=== PATIENT | female | born 1995 | race Caucasian/White ===

== ENCOUNTER 2021-09-23 18:40 | Inpatient (IN) | payer MEDICAID ==
[~2021-09-23] VITALS: Ht 162.6 cm; Wt 105.2 kg
[~2021-09-23 18:40] MED LIST: FAMO20TA5 PO; HYOS0.1216 PO; NITR-65 PO
[2021-09-23 19:45] VITALS: BP 113/68
[2021-09-23] MEDS ORDERED: LACTATED RINGERS 1,000 ML IV SCH (19:45)
[2021-09-23] MEDS ORDERED: MINERAL OIL 30 ML OIL TOP PRN (19:45)
[2021-09-23] MEDS ORDERED: LACTATED RINGERS 1,000 ML IV ONE (20:01)
[2021-09-23] MEDS: CATHETER FLUSH 10 ML SYR IV SCH (20:32)
[2021-09-23 21:01] LABS: BASOPHILS % (AUTO) 0 % (0-10); EOSINOPHILS # (AUTO) 0.1 10^3/uL (0.0-0.3); EOSINOPHILS % (AUTO) 1 % (0-10); HEMATOCRIT 39 % (35-52); LYMPHOCYTES # (AUTO) 1.1 10^3/uL (1.0-4.0); LYMPHOCYTES % (AUTO) 14 % (12-44); MEAN CORPUSCULAR HEMOGLOBIN 28 pg (25-34); MEAN CORPUSCULAR HGB CONC 34 g/dL (32-36); MEAN CORPUSCULAR VOLUME 85 fL (80-99); MONOCYTES # (AUTO) 0.4 10^3/uL (0.0-1.0); MONOCYTES % (AUTO) 5 % (0-12); NEUTROPHILS # (AUTO) 6.4 10^3/uL (1.8-7.8); NEUTROPHILS % (AUTO) 80 % (42-75); PLATELET COUNT 204 10^3/uL (130-400)
[2021-09-23] MEDS: LACTATED RINGERS 1,000 ML IV SCH (21:04)
[2021-09-23 21:10] VITALS: BP 121/67
[2021-09-23] MEDS ORDERED: METF-397 PO ×2 (22:36)
[2021-09-24] VITALS (70 sets, daily range): BP systolic 90–157; BP diastolic 49–89
[2021-09-24] MEDS: LACTATED RINGERS 1,000 ML IV SCH ×4 (05:23→22:06)
--- NOTE | 2021-09-24 07:33 | History & Physical-OB/GYN ---
MADELYN LAWS III MED STUDENT 09/24/21 0733: OB - Chief Complaint & HPI Date/Time Date of Admission: Date of Admission: Sep 23, 2021 at 18:40 Date seen by a Provider: Sep 24, 2021 Time Seen by a Provider: 08:10 Chief Complaint/History OB-Reason for Admission/Chief: Induction of Labor Hx : 3 Hx Para: 2 Hx Last Menstrual Period: 12/29/2020 Expected Date of Delivery: Oct 05, 2021 Gestational Age in Weeks: 38 Gestational Age in Days: 3 Indication for induction: medical complication (Gestational diabetes, LGA w/ most recent EFW of 4130g) Allergies and Home Medications Allergies Coded Allergies: hydrocodone (Verified Allergy, Unknown, Rash, 09/23/21) Patient Home Medication List Home Medication List Reviewed: Yes Metformin HCl (Metformin HCl) 500 Mg Tablet, 500 MG PO DAILY, (Reported) Entered as Reported by: HARLEEN DAY on 09/23/212235 Last Action: New Order Metformin HCl (Metformin HCl) 500 Mg Tablet, 1,500 MG PO HS, (Reported) Entered as Reported by: HARLEEN DAY on 09/23/212235 Last Action: New Order Discontinued Medications Famotidine (Pepcid) 20 Mg Tablet, 1 EACH PO BID Discontinued Reason: No Longer Taking Prescribed by: JAMSHID HEMPHILL on 04/03/141741 Last Action: Discontinued Hyoscyamine Sulfate (Levsin 0.125 Mg Tab) 0.125 Mg Tab, 1-2 EACH PO Q4HR PRN PRN for ABDOMINAL PAIN Discontinued Reason: No Longer Taking Prescribed by: JAMSHID HEMPHILL on 04/03/141741 Last Action: Discontinued Nitrofurantoin/Nitrofuran Mac (Macrobid) 100 Mg Capsule, 1 EACH PO BID Discontinued Reason: No Longer Taking Prescribed by: JAMSHID HEMPHILL on 04/03/141741 Last Action: Discontinued OB - History Hx of Present Care: Yes Obstetrical Complications: Gestational Diabetes Medical Complications: None Information Induced Hypertension: No Maternal Gestational Diabetes: Yes Hemorrhage: No Obstetrical History Hx : 3 Hx Para: 2 Hx # Term Pregnancies: 2 Hx # Pregnancies: 0 Number of Living Children: 2 Hx Termination: No Hx Total # of Abortions (Spona: 0 Hx Multiple Gestation: No Hx Ectopic : No Hx Stillbirth: No Hx Complication: No Hx Induced Hypertens: No Hx Maternal Gestational Diabet: Yes Hx Hemorrhage: No Delivery History Hx Dystocia: No Hx Forceps Assisted Delivery: No Hx Vacuum Extraction Assisted: No Hx Placenta Abnormality: No Hx Distress: No Hx Large For Gestational Age I: No Hx Small for Gestational Age I: No Hx Section: No Hx Vaginal Delivery Post C-Sec: No Hx Blood Disorders: No Adverse Rxn to Tranfusion: No Patient Past Medical History Hx of gestational diabetes requiring insulin in first Social History/Family History Alcohol Use: Denies Use Recreational Drug Use: No Smoking Cessation: Never smoker 2nd Hand Smoke Exposure: No Immunizations Influenza Vaccine Up-to-Date: No; Not Current Tetanus Booster (TDap): Less than 5yrs Rubella: immune RPR/VDRL: Negative GBS Status: Negative HBsAG: Negative OB - Admission Exam Physical Exam Vitals: Vital Signs 09/24/21 09/24/21 04:25 07:05 Temp 36.5 Pulse 102 Resp 20 B/P (MAP) 130/71 (90) O2 Delivery Room Air HEENT: NCAT Heart: Rhythm Normal Lungs: Clear Abdomen: Gravid Extremities: Edema (trace pedal edema) Cervical Dilatation: 4cm Effacement: 25% Station: -2 Membranes: Intact (prior to cervical check, broke water at 0812) Amniotic Fluid: Clear Heart Rate: 140's Accelerations: Accelerations Present Decelerations: No Decelerations Short Term Variability: Present Fci Variability: Average (6-25) Contractions on Admission: 6-10 Minutes Apart Date/Time Contractions Began;: cytotec given on admission Intensity: Moderate Ulrich Scoring Tool (Modified) Dilation (cm): 1-2cm (1) Effacement (%): 0-30% (0) Descent/Station: -2 (1) Cervix Consistency: Soft (2) Cervix Position: Posterior (0) Add 1 point for: Each previous vaginal delivery (1) (x2) Ulrich Score: 6 Labs Laboratory Tests Test 09/23/21 19:52 09/23/21 20:20 09/24/21 00:03 09/24/21 04:29 Range/Units Glucometer 85 82 94 70-110 MG/DL White Blood Count 8.0 4.3-11.0 10^3/uL Red Blood Count 4.58 3.80-5.11 10^6/uL Hemoglobin 13.0 11.5-16.0 g/dL Hematocrit 39 35-52 % Mean Corpuscular Volume 85 80-99 fL Mean Corpuscular Hemoglobin 28 25-34 pg Mean Corpuscular Hemoglobin Concent 34 32-36 g/dL Red Cell Distribution Width 13.4 10.0-14.5 % Platelet Count 204 130-400 10^3/uL Mean Platelet Volume 12.0 9.0-12.2 fL Immature Granulocyte % (Auto) 1 % Neutrophils (%) (Auto) 80 H 42-75 % Lymphocytes (%) (Auto) 14 12-44 % Monocytes (%) (Auto) 5 0-12 % Eosinophils (%) (Auto) 1 0-10 % Basophils (%) (Auto) 0 0-10 % Neutrophils # (Auto) 6.4 1.8-7.8 10^3/uL Lymphocytes # (Auto) 1.1 1.0-4.0 10^3/uL Monocytes # (Auto) 0.4 0.0-1.0 10^3/uL Eosinophils # (Auto) 0.1 0.0-0.3 10^3/uL Basophils # (Auto) 0.0 0.0-0.1 10^3/uL Immature Granulocyte # (Auto) 0.0 0.0-0.1 10^3/uL OB - Assessment/Plan/Diagnosis Assessment Assessment: induction of labor Admission Dx Induction of labor gestational diabetes LGA infant Plan Plan: Induction ALPHONSE GONZALEZ MD 09/24/21 0827: Allergies and Home Medications Allergies Coded Allergies: hydrocodone (Verified Allergy, Unknown, Rash, 09/23/21) Patient Home Medication List Metformin HCl (Metformin HCl) 500 Mg Tablet, 500 MG PO DAILY, (Reported) Entered as Reported by: HARLEEN DAY on 09/23/212235 Last Action: New Order Metformin HCl (Metformin HCl) 500 Mg Tablet, 1,500 MG PO HS, (Reported) Entered as Reported by: HARLEEN DAY on 09/23/212235 Last Action: New Order Discontinued Medications Famotidine (Pepcid) 20 Mg Tablet, 1 EACH PO BID Discontinued Reason: No Longer Taking Prescribed by: JAMSHID HEMPHILL on 04/03/14 1741 Last Action: Discontinued Hyoscyamine Sulfate (Levsin 0.125 Mg Tab) 0.125 Mg Tab, 1-2 EACH PO Q4HR PRN PRN for ABDOMINAL PAIN Discontinued Reason: No Longer Taking Prescribed by: JAMSHID CARLINO on 04/03/141741 Last Action: Discontinued Nitrofurantoin/Nitrofuran Mac (Macrobid) 100 Mg Capsule, 1 EACH PO BID Discontinued Reason: No Longer Taking Prescribed by: JAMSHID CARLINO on 04/03/141741 Last Action: Discontinued OB - Admission Exam Physical Exam HEENT: NCAT Abdomen: Non tender Cervical Dilatation: 3cm Effacement: Other (20%) Station: -2 Membranes: Intact (AROM at time of exam) Amniotic Fluid: Clear Heart Rate: 140's Accelerations: Accelerations Present Decelerations: No Decelerations Short Term Variability: Present Fci Variability: Average (6-25) Contractions on Admission: >10 Minutes Apart OB - Assessment/Plan/Diagnosis Assessment Admission Dx Term intrauterine at 38 weeks and 3 days gestation Third trimester Gestational diabetes A2 on metformin Suspected macrosomia GBS neg Admission Status: Inpatient Order (span 2 midnights) Reason for Inpatient Admission: Labor, delivery and course Plan Problems: (1) Gestational diabetes Assessment & Plan: 38w3d, induction at this time due to suboptimal fasting glucose over the last week (around 100 daily) along with impending macrosomia with EFW 4130 on 09/20. Has had weekly reassuring BPPs. -Cytotec vaginal given x2 overnight with improvement from 2 to 3+ cm and cervical softening and moved to anterior position. AROM done at time of exam this morning with clear fluid, will start pitocin. -Glucose check q4, have been within normal limits Qualifiers: Qualified Codes: O24.415 - Gestational diabetes mellitus in , controlled by oral hypoglycemic drugs Supervisory-Addendum Brief Verification & Attestation Participated in pt care: history, MDM, physical Personally performed: exam, history, MDM Care discussed with: Medical Student Procedures: n/a I personally saw and examined patient and repeated the history and exam (see my physical exam for my findings, I did not repeat the exact exam documented by the medical student.) I directed the plan of care as documented. MADELYN LAWS III MED STUDENT Sep 24, 2021 07:33 ALPHONSE GONZALEZ MD Sep 24, 2021 08:27
[2021-09-24] MEDS ORDERED: OXYTOCIN PRE-MIX DRIP 500 ML IV ONE (08:23)
[2021-09-24] MEDS ORDERED: OXYTOCIN PRE-MIX DRIP 500 ML IV SCH (08:30)
[2021-09-24] MEDS ORDERED: fentaNYL 2 mcg/ml BUPIVA 0.125 100 ML ONE (08:49)
[2021-09-24] MEDS ORDERED: fentaNYL INJ 100 MCG/2 ML AMP ONE ×2 (09:10→17:41)
[2021-09-24] MEDS ORDERED: BUPIVACAINE 0.25% 10 ML (SENSORCAINE) VIAL ONE (09:10)
[2021-09-24] MEDS ORDERED: diphenhydrAMINE 50 MG/ML INJ (BENADRYL) IV PRN (09:15)
[2021-09-24] MEDS ORDERED: CATHETER FLUSH 10 ML SYR IV PRN (09:15)
[2021-09-24] MEDS ORDERED: NALOXONE 0.4 MG/ML 1 ML (NARCAN) VIAL IV PRN ×2 (09:15→19:15)
[2021-09-24] MEDS ORDERED: LACTATED RINGERS 1,000 ML IV ONE (09:15)
[2021-09-24] MEDS ORDERED: ONDANSETRON 4 MG/2 ML (SDV) Z0FRAN IV PRN (09:15)
[2021-09-24] MEDS: fentaNYL 2 mcg/ml BUPIVA 0.125 100 ML IV SCH ×2 (09:35→21:20)
[2021-09-24] MEDS ORDERED: LACTATED RINGERS 1,000 ML IV SCH (16:45)
--- NOTE | 2021-09-24 16:55 | Labor Progress Note ---
Labor Progress Note Labor Progress Note Date Seen by Provider: Sep 24, 2021 Time Seen by Provider: 16:46 Subjective: Pt denies complaints. First saw her at 1530, discussed category II tracing with recurrent deep variable declerations and recommended scalp electrode plac ement and amnioinfusion, she was hesitant about infusion, so decided to proceed with FSE which was placed at 1549 and trying peanut ball again first. Decelerations did not improve with position change, and she decided she was ready to try amnioinfusion at about 1630. Objective: Cervical exam: /-1, cervix stretchy and head not firmly applied Consistency: soft Position: anterior Presentation: vertex, caput noted posteriorly heart tones: 150 beats per minute, minimal variability for a few minutes prior to IUPC placement, moderate variability after variable deceleration. No accelerations. Tocometer: 2 ctx/10 minutes Assessment/Plan: Lynette Griggs is a (25 /Para 3 / 2,Gestational Age (wks)38 here for induction of labor for gestational diabetes with suspected macrosomia. FSE placed, IUPC inserted and amnioinfusion ordered. Discussed with patient slow progress and no descent and decelerations. If amnioinfusion does not resolve heart rate decelerations quickly, may need to proceed to . Anesthesia: Epidural Vitals - Labs Vital Signs - I&O Vital Signs Date Time Temp Pulse Resp B/P (MAP) Pulse Ox O2 Delivery O2 Flow Rate FiO2 09/24/21 15:50 99 20 135/79 (97) Room Air 09/24/21 15:35 90 20 118/69 (85) Room Air 09/24/21 15:20 102 20 114/60 (78) Room Air 09/24/21 15:05 111 20 115/58 (77) Room Air 09/24/21 14:50 36.4 99 20 108/64 (79) Room Air 09/24/21 14:35 94 20 111/57 (75) Room Air 09/24/21 14:20 101 20 113/62 (79) Room Air 09/24/21 14:05 98 20 110/57 (74) Room Air 09/24/21 13:50 36.3 09/24/21 13:35 117 20 111/61 (78) Room Air 09/24/21 13:20 97 20 129/81 (97) Room Air 09/24/21 13:05 37.0 108 20 127/75 (92) Room Air 09/24/21 12:50 99 20 112/53 (72) Room Air 09/24/21 12:35 100 20 120/57 (78) Room Air 09/24/21 12:20 86 20 101/52 (68) Room Air 09/24/21 12:05 111 20 129/75 (93) Room Air 09/24/21 11:50 106 20 125/71 (89) Room Air 09/24/21 11:35 92 20 127/71 (89) 95 Room Air 09/24/21 11:20 113 20 128/73 (91) 95 Room Air 09/24/21 11:05 95 20 118/68 (85) 96 Room Air 09/24/21 10:50 112 20 127/65 (85) 97 Room Air 09/24/21 10:35 36.3 123 20 131/69 (89) 99 Room Air 09/24/21 10:20 126 20 130/70 (90) 100 Room Air 09/24/21 10:15 106 20 133/70 (91) 98 Room Air 09/24/21 10:10 104 20 130/74 (92) 99 Room Air 09/24/21 10:05 111 20 128/72 (90) 99 Room Air 09/24/21 09:57 106 20 136/63 (87) 100 Room Air 09/24/21 09:54 113 20 134/59 (84) 97 Room Air 09/24/21 09:51 116 20 129/66 (87) 98 Room Air 09/24/21 09:48 106 20 131/70 (90) 98 Room Air 09/24/21 09:45 98 20 135/71 (92) 99 Room Air 09/24/21 09:42 63 20 127/72 (90) Room Air 09/24/21 09:39 82 20 96/55 (69) Room Air 09/24/21 09:36 90 20 122/72 (89) 100 Room Air 09/24/21 09:33 120 20 128/85 (99) Room Air 09/24/21 09:30 115 20 129/75 (93) 98 Room Air 09/24/21 09:27 114 20 139/65 (89) 98 Room Air 09/24/21 09:24 112 20 154/69 (97) 98 Room Air 09/24/21 09:21 109 20 142/73 (96) 98 Room Air 09/24/21 09:18 120 20 157/73 (101) 100 Room Air 09/24/21 09:15 111 20 140/89 (106) 100 Room Air 09/24/21 09:05 103 20 133/87 (102) Room Air 09/24/21 08:35 105 20 133/62 (85) Room Air 09/24/21 08:10 95 20 139/81 (100) Room Air 09/24/21 07:45 36.5 09/24/21 07:05 102 20 130/71 (90) Room Air 09/24/21 06:35 94 20 118/65 (82) Room Air 09/24/21 06:05 111 20 119/76 (90) Room Air 09/24/21 05:35 115 20 123/70 (87) Room Air 09/24/21 05:05 99 20 126/77 (93) Room Air 09/24/21 04:35 97 20 126/67 (86) Room Air 09/24/21 04:25 36.5 09/24/21 04:05 117 20 118/70 (86) Room Air 09/24/21 03:34 93 20 132/73 (92) Room Air 09/24/21 03:05 100 20 116/66 (83) Room Air 09/24/21 02:35 93 20 128/73 (91) Room Air 09/24/21 02:05 98 20 126/78 (94) Room Air 09/24/21 01:35 99 20 90/53 (65) Room Air 09/24/21 01:05 95 20 99/49 (66) Room Air 09/24/21 00:35 96 20 107/58 (74) Room Air 09/24/21 00:05 36.9 104 20 128/76 (93) Room Air 09/23/21 21:10 100 20 121/67 (85) Room Air 09/23/21 19:45 36.7 101 20 99 Room Air 09/23/21 19:45 36.7 101 20 113/68 (83) 99 Room Air Labs Laboratory Tests 09/23/21 19:52: Glucometer 85 09/23/21 20:20: White Blood Count 8.0, Red Blood Count 4.58, Hemoglobin 13.0, Hematocrit 39, Mean Corpuscular Volume 85, Mean Corpuscular Hemoglobin 28, Mean Corpuscular Hemoglobin Concent 34, Red Cell Distribution Width 13.4, Platelet Count 204, Mean Platelet Volume 12.0, Immature Granulocyte % (Auto) 1, Neutrophils (%) (Auto) 80H, Lymphocytes (%) (Auto) 14, Monocytes (%) (Auto) 5, Eosinophils (%) (Auto) 1, Basophils (%) (Auto) 0, Neutrophils # (Auto) 6.4, Lymphocytes # (Auto) 1.1, Monocytes # (Auto) 0.4, Eosinophils # (Auto) 0.1, Basophils # (Auto) 0.0, Immature Granulocyte # (Auto) 0.0 09/24/21 00:03: Glucometer 82 09/24/21 04:29: Glucometer 94 09/24/21 07:44: Glucometer 87 09/24/21 12:06: Glucometer 87 09/24/21 16:10: Glucometer 81 ALPHONSE GONZALEZ MD Sep 24, 2021 16:55
[2021-09-24] MEDS ORDERED: FAMOTIDINE 20MG/2ML IV (PEPCID) ONE (17:23)
[2021-09-24] MEDS ORDERED: CITRIC ACID/SOB CIT (BICITRA) 30 ML UDC ONE (17:23)
[2021-09-24] MEDS ORDERED: METOCLOPRAMIDE INJ 10 MG/2 ML (REGLAN) ONE (17:23)
[2021-09-24] MEDS ORDERED: AMPICILLIN 2,000 MG/14.8 ML (IV USE) ONE (17:24)
[2021-09-24] MEDS ORDERED: NS (IVPB) 50 ML ONE (17:24)
[2021-09-24] MEDS ORDERED: WATER (STERILE) FOR INJECTION 10 ML ONE (17:24)
[2021-09-24] MEDS ORDERED: AZITHROMYCIN INJECTION 500 MG/5 ML VIAL ONE (17:24)
[2021-09-24] MEDS ORDERED: TERBUTALINE INJ 1 MG/ML (BRETHINE) AMP ONE (17:29)
[2021-09-24] MEDS ORDERED: MIDAZOLAM 2 MG/2 ML (VERSED) VIAL ONE (17:41)
[2021-09-24] MEDS ORDERED: LACTATED RINGERS 1,000 ML IV PRN (17:45)
[2021-09-24] MEDS ORDERED: CITRIC ACID/SOB CIT (BICITRA) 30 ML UDC PO ONE (17:45)
[2021-09-24] MEDS ORDERED: AZITHROMYCIN INJECTION 500 MG in NS (IVPB) 250 ML IV ONE (17:45)
[2021-09-24] MEDS ORDERED: AMPICILLIN FOR IV USE 2,000 MG in WATER (STERILE) FOR INJECTION 14.8 ML IV ONE (17:45)
[2021-09-24] MEDS ORDERED: FAMOTIDINE 20MG/2ML IV (PEPCID) IV ONE (17:45)
[2021-09-24] MEDS ORDERED: METOCLOPRAMIDE INJ 10 MG/2 ML (REGLAN) IV ONE (17:45)
[2021-09-24] MEDS ORDERED: METHYLERGONOVINE 0.2 MG/ML (METHERGINE) AMP ONE ×2 (18:31→18:34)
[2021-09-24] MEDS ORDERED: LIDOCAINE PF 2% 5 ML (XYLOCAINE) VIAL ONE (18:55)
[2021-09-24] MEDS ORDERED: ONDANSETRON 4 MG/2 ML (SDV) Z0FRAN ONE (18:55)
[2021-09-24] MEDS ORDERED: ONDANSETRON 4 MG/2 ML (SDV) Z0FRAN IVP PRN (19:15)
[2021-09-24] MEDS ORDERED: TETANUS,DIPTH,PERTUSS P/F (BOOSTRIX) 0.5 ML VIAL IM SCH (19:15)
[2021-09-24] MEDS ORDERED: morphine INJ 4 MG/ML 1 ML (VIAL/SYRINGE) IV PRN (19:15)
[2021-09-24] MEDS ORDERED: MEASLES,MUMPS,RUBELLA 1 EA INJ SC SCH (19:15)
--- NOTE | 2021-09-24 19:28 | Cesarean Section Operative ---
Procedure Procedure Note Pre-operative Diagnosis: Lynette Griggs is a 25yo /Para 3 / 2, Gestational Age (wks)38 with gestational diabetes, type 2A with non-reassuring status Post-operative Diagnosis: s/p Procedure: primary low transverse section Physician: NATHANIEL CALLES Stripper Cutter Machine: None Estimated blood loss: 400 mL Disposition: stable Findings: Viable male , Apgars 8, 9, weight 7#14, intact placenta, 3vc, normal appearing uterus, tubes, and ovaries. Indications:Lynette Griggs is a 25yo /Para 3 / 2,Gestational Age (wks) 38 who presented for IOL for GDMA2. She progressed to 8cm but experienced persistent deep variables despite resuscitation and discontinuation of pi tocin. The decision was made to proceed with primary low transverse section due to non-reassuring status. Procedure Details: The patient was seen in pre-op and the procedure was discussed with the patient in full, including the risks, benefits, and alternatives. All questions were answered. The patient was taken to the operating room and a time out was performed, verifying patient and procedure. After epidural anesthesia was placed by our anesthesia colleagues, the patient was placed in the dorsal supine with leftward tilt for uterine displacement. Her abdomen was then prepped and draped in the typical sterile fashion. A Pfannenstiel skin incision was made using a scalpel and carried down through the underlying fascia. The fascia was incised in the midline and tented up using Shaunna clamps. On both the inferior and superior fascia side the rectus muscle was dissected off bluntly and sharply using Simpson scissors. The peritoneum was identified and entered bluntly in the midline. This was then stretched laterally using manual strength. After entering the abdominal cavity and confirming lack of intraperitoneal adhesions, a large Dillon retractor was placed and the lower uterine segment was visualized. A scalpel was utilized to make a low transverse uterine incision. Amniotomy was performed with an Allis clamp with return of clear fluid. The infant's head was grasped and brought to the level of the incision. Fundal pressure was applied and was delivered without difficulty. Mouth and nares were suctioned with bulb suction. After the umbilical cord was clamped and cut, the was handed off to the pediatric staff. A sample of cord blood was then obtained. The placenta was delivered intact via uterine massage. The uterus was exteriorized and cleared of all clots and debris. The uterine incision was closed using 0 Chromic in a running locked fashion. A second imbricated layer was placed using 0 Chromic in a running fashion as well. The uterus was flexed forward and the posterior rectouterine space was inspected and cleared of all clots and debris. Again the hysterotomy site was examined and hemostasis was observed. The bilateral tubes and ovaries appeared normal. The uterus was placed back into the abdominal cavity and abdominal gutters were cleared of all clots and debris. A final check of the uterine incision showed it to be hemostatic. The rectus muscles were re-approximated using 3-0 Chromic in a running fashion. The fascia was closed with 0 Vicryl in a running fashion. The subcutaneous space was hemostatic, and irrigated. The subcutaneous space was closed with 2-0 Chromic suture in several single interrupted stitches. The skin was then closed using 4-0 Monocryl in a running subcuticular fashion. The skin edges were reapproximated together and were hemostatic. Skin glue was used on the dressing. After the skin glue was found to be dry, a pressure dressing was applied. All sponge, lap and needle counts were correct at the end of the procedure per nursing. 1000mcg of cytotec was placed rectally after uterine sweep was completed. This concluded the case. Vitals - Labs Vital Signs - I&O Vital Signs Date Time Temp Pulse Resp B/P (MAP) Pulse Ox O2 Delivery O2 Flow Rate FiO2 09/24/21 17:50 37.8 145 18 127/69 (88) 100 Room Air 09/24/21 17:35 130 18 131/65 (87) 100 Room Air 09/24/21 17:05 104 18 118/59 (78) Room Air 09/24/21 16:50 103 18 131/62 (85) Room Air 09/24/21 16:35 107 18 134/70 (91) Room Air 09/24/21 16:20 115 18 142/75 (97) Room Air 09/24/21 16:10 36.9 09/24/21 15:50 99 20 135/79 (97) Room Air 09/24/21 15:35 90 20 118/69 (85) Room Air 09/24/21 15:20 102 20 114/60 (78) Room Air 09/24/21 15:05 111 20 115/58 (77) Room Air 09/24/21 14:50 36.4 99 20 108/64 (79) Room Air 09/24/21 14:35 94 20 111/57 (75) Room Air 09/24/21 14:20 101 20 113/62 (79) Room Air 09/24/21 14:05 98 20 110/57 (74) Room Air 09/24/21 13:50 36.3 09/24/21 13:35 117 20 111/61 (78) Room Air 09/24/21 13:20 97 20 129/81 (97) Room Air 09/24/21 13:05 37.0 108 20 127/75 (92) Room Air 09/24/21 12:50 99 20 112/53 (72) Room Air 09/24/21 12:35 100 20 120/57 (78) Room Air 09/24/21 12:20 86 20 101/52 (68) Room Air 09/24/21 12:05 111 20 129/75 (93) Room Air 09/24/21 11:50 106 20 125/71 (89) Room Air 09/24/21 11:35 92 20 127/71 (89) 95 Room Air 09/24/21 11:20 113 20 128/73 (91) 95 Room Air 09/24/21 11:05 95 20 118/68 (85) 96 Room Air 09/24/21 10:50 112 20 127/65 (85) 97 Room Air 09/24/21 10:35 36.3 123 20 131/69 (89) 99 Room Air 09/24/21 10:20 126 20 130/70 (90) 100 Room Air 09/24/21 10:15 106 20 133/70 (91) 98 Room Air 09/24/21 10:10 104 20 130/74 (92) 99 Room Air 09/24/21 10:05 111 20 128/72 (90) 99 Room Air 09/24/21 09:57 106 20 136/63 (87) 100 Room Air 09/24/21 09:54 113 20 134/59 (84) 97 Room Air 09/24/21 09:51 116 20 129/66 (87) 98 Room Air 09/24/21 09:48 106 20 131/70 (90) 98 Room Air 09/24/21 09:45 98 20 135/71 (92) 99 Room Air 09/24/21 09:42 63 20 127/72 (90) Room Air 09/24/21 09:39 82 20 96/55 (69) Room Air 09/24/21 09:36 90 20 122/72 (89) 100 Room Air 09/24/21 09:33 120 20 128/85 (99) Room Air 09/24/21 09:30 115 20 129/75 (93) 98 Room Air 09/24/21 09:27 114 20 139/65 (89) 98 Room Air 09/24/21 09:24 112 20 154/69 (97) 98 Room Air 09/24/21 09:21 109 20 142/73 (96) 98 Room Air 09/24/21 09:18 120 20 157/73 (101) 100 Room Air 09/24/21 09:15 111 20 140/89 (106) 100 Room Air 09/24/21 09:05 103 20 133/87 (102) Room Air 09/24/21 08:35 105 20 133/62 (85) Room Air 09/24/21 08:10 95 20 139/81 (100) Room Air 09/24/21 07:45 36.5 09/24/21 07:05 102 20 130/71 (90) Room Air 09/24/21 06:35 94 20 118/65 (82) Room Air 09/24/21 06:05 111 20 119/76 (90) Room Air 09/24/21 05:35 115 20 123/70 (87) Room Air 09/24/21 05:05 99 20 126/77 (93) Room Air 09/24/21 04:35 97 20 126/67 (86) Room Air 09/24/21 04:25 36.5 09/24/21 04:05 117 20 118/70 (86) Room Air 09/24/21 03:34 93 20 132/73 (92) Room Air 09/24/21 03:05 100 20 116/66 (83) Room Air 09/24/21 02:35 93 20 128/73 (91) Room Air 09/24/21 02:05 98 20 126/78 (94) Room Air 09/24/21 01:35 99 20 90/53 (65) Room Air 09/24/21 01:05 95 20 99/49 (66) Room Air 09/24/21 00:35 96 20 107/58 (74) Room Air 09/24/21 00:05 36.9 104 20 128/76 (93) Room Air 09/23/21 21:10 100 20 121/67 (85) Room Air 09/23/21 19:45 36.7 101 20 99 Room Air 09/23/21 19:45 36.7 101 20 113/68 (83) 99 Room Air Labs Laboratory Tests 09/23/21 19:52: Glucometer 85 09/23/21 20:20: White Blood Count 8.0, Red Blood Count 4.58, Hemoglobin 13.0, Hematocrit 39, Mean Corpuscular Volume 85, Mean Corpuscular Hemoglobin 28, Mean Corpuscular Hemoglobin Concent 34, Red Cell Distribution Width 13.4, Platelet Count 204, Mean Platelet Volume 12.0, Immature Granulocyte % (Auto) 1, Neutrophils (%) (Auto) 80H, Lymphocytes (%) (Auto) 14, Monocytes (%) (Auto) 5, Eosinophils (%) (Auto) 1, Basophils (%) (Auto) 0, Neutrophils # (Auto) 6.4, Lymphocytes # (Auto) 1.1, Monocytes # (Auto) 0.4, Eosinophils # (Auto) 0.1, Basophils # (Auto) 0.0, I mmature Granulocyte # (Auto) 0.0 09/24/21 00:03: Glucometer 82 09/24/21 04:29: Glucometer 94 09/24/21 07:44: Glucometer 87 09/24/21 12:06: Glucometer 87 09/24/21 16:10: Glucometer 81 NATHANIEL CALLES MD Sep 24, 2021 19:27
[2021-09-24] MEDS ORDERED: KETOROLAC 30 MG/ML VIAL ONE (20:30)
[2021-09-24] MEDS: KETOROLAC 15 MG/ML VIAL IV SCH (20:35)
[2021-09-24] MEDS: ACETAMINOPHEN 500 MG TAB (TYLENOL) PO SCH (20:35)
[2021-09-24] MEDS: CATHETER FLUSH 10 ML SYR IV SCH (21:07)
[2021-09-24] MEDS ORDERED: CATHETER FLUSH 10 ML SYR IV SCH (22:00)
[2021-09-24] MEDS: DOCUSATE SODIUM 100 MG (COLACE) CAP PO SCH (23:55)
[2021-09-25 00:18] VITALS: BP 117/58
[2021-09-25 03:10] VITALS: BP 110/69
[2021-09-25] MEDS: KETOROLAC 15 MG/ML VIAL IV SCH ×3 (03:10→15:42)
[2021-09-25] MEDS: ACETAMINOPHEN 500 MG TAB (TYLENOL) PO SCH ×3 (05:22→21:57)
[2021-09-25 05:40] LABS: BASOPHILS % (AUTO) 0 % (0-10); EOSINOPHILS % (AUTO) 0 % (0-10); HEMATOCRIT 31 % (35-52); HEMOGLOBIN 10.6 g/dL (11.5-16.0); LYMPHOCYTES # (AUTO) 1.1 10^3/uL (1.0-4.0); LYMPHOCYTES % (AUTO) 12 % (12-44); MEAN CORPUSCULAR HEMOGLOBIN 29 pg (25-34); MEAN CORPUSCULAR HGB CONC 34 g/dL (32-36); MEAN CORPUSCULAR VOLUME 85 fL (80-99); MEAN PLATELET VOLUME 11.6 fL (9.0-12.2); MONOCYTES # (AUTO) 0.6 10^3/uL (0.0-1.0); MONOCYTES % (AUTO) 6 % (0-12); NEUTROPHILS # (AUTO) 7.6 10^3/uL (1.8-7.8); NEUTROPHILS % (AUTO) 81 % (42-75); PLATELET COUNT 172 10^3/uL (130-400); WHITE BLOOD COUNT 9.5 10^3/uL (4.3-11.0)
[2021-09-25 08:47] VITALS: BP 123/70
[2021-09-25] MEDS: DOCUSATE SODIUM 100 MG (COLACE) CAP PO SCH (09:09)
--- NOTE | 2021-09-25 10:06 | Postpartum Progress Note ---
Post Op Post-operative Day #1 Subjective: Patient is without complaints. Ambulating, voiding after gerard removed. Tolerating a regular diet without nausea or vomiting. Normal lochia. Pain is well controlled with oral pain medications. Passing flatus. Breast and bottlefeeding. She has no complaints today. Objective: VS - Last 72 Hours, by Label 09/23/21 09/23/21 09/23/21 09/24/21 19:45 19:45 21:10 00:05 Temp 36.7 36.7 36.9 Pulse 101 101 100 104 Resp 20 20 20 20 B/P (MAP) 113/68 (83) 121/67 (85) 128/76 (93) Pulse Ox 99 99 O2 Delivery Room Air Room Air Room Air Room Air 09/24/21 09/24/21 09/24/21 09/24/21 00:35 01:05 01:35 02:05 Pulse 96 95 99 98 Resp 20 20 20 20 B/P (MAP) 107/58 (74) 99/49 (66) 90/53 (65) 126/78 (94) O2 Delivery Room Air Room Air Room Air Room Air 09/24/21 09/24/21 09/24/21 09/24/21 02:35 03:05 03:34 04:05 Pulse 93 100 93 117 Resp 20 20 20 20 B/P (MAP) 128/73 (91) 116/66 (83) 132/73 (92) 118/70 (86) O2 Delivery Room Air Room Air Room Air Room Air 09/24/21 09/24/21 09/24/21 09/24/21 04:25 04:35 05:05 05:35 Temp 36.5 Pulse 97 99 115 Resp 20 20 20 B/P (MAP) 126/67 (86) 126/77 (93) 123/70 (87) O2 Delivery Room Air Room Air Room Air 09/24/21 09/24/21 09/24/21 09/24/21 06:05 06:35 07:05 07:45 Temp 36.5 Pulse 111 94 102 Resp 20 20 20 B/P (MAP) 119/76 (90) 118/65 (82) 130/71 (90) O2 Delivery Room Air Room Air Room Air 09/24/21 09/24/21 09/24/21 09/24/21 08:10 08:35 09:05 09:15 Pulse 95 105 103 111 Resp 20 20 20 20 B/P (MAP) 139/81 (100) 133/62 (85) 133/87 (102) 140/89 (106) Pulse Ox 100 O2 Delivery Room Air Room Air Room Air Room Air 09/24/21 09/24/21 09/24/21 09/24/21 09:18 09:21 09:24 09:27 Pulse 120 109 112 114 Resp 20 20 20 20 B/P (MAP) 157/73 (101) 142/73 (96) 154/69 (97) 139/65 (89) Pulse Ox 100 98 98 98 O2 Delivery Room Air Room Air Room Air Room Air 09/24/21 09/24/21 09/24/21 09/24/21 09:30 09:33 09:36 09:39 Pulse 115 120 90 82 Resp 20 20 20 20 B/P (MAP) 129/75 (93) 128/85 (99) 122/72 (89) 96/55 (69) Pulse Ox 98 100 O2 Delivery Room Air Room Air Room Air Room Air 09/24/21 09/24/21 09/24/21 09/24/21 09:42 09:45 09:48 09:51 Pulse 63 98 106 116 Resp 20 20 20 20 B/P (MAP) 127/72 (90) 135/71 (92) 131/70 (90) 129/66 (87) Pulse Ox 99 98 98 O2 Delivery Room Air Room Air Room Air Room Air 09/24/21 09/24/21 09/24/21 09/24/21 09:54 09:57 10:05 10:10 Pulse 113 106 111 104 Resp 20 20 20 20 B/P (MAP) 134/59 (84) 136/63 (87) 128/72 (90) 130/74 (92) Pulse Ox 97 100 99 99 O2 Delivery Room Air Room Air Room Air Room Air 09/24/21 09/24/21 09/24/21 09/24/21 10:15 10:20 10:35 10:50 Temp 36.3 Pulse 106 126 123 112 Resp 20 20 20 20 B/P (MAP) 133/70 (91) 130/70 (90) 131/69 (89) 127/65 (85) Pulse Ox 98 100 99 97 O2 Delivery Room Air Room Air Room Air Room Air 09/24/21 09/24/21 09/24/21 09/24/21 11:05 11:20 11:35 11:50 Pulse 95 113 92 106 Resp 20 20 20 20 B/P (MAP) 118/68 (85) 128/73 (91) 127/71 (89) 125/71 (89) Pulse Ox 96 95 95 O2 Delivery Room Air Room Air Room Air Room Air 09/24/21 09/24/21 09/24/21 09/24/21 12:05 12:20 12:35 12:50 Pulse 111 86 100 99 Resp 20 20 20 20 B/P (MAP) 129/75 (93) 101/52 (68) 120/57 (78) 112/53 (72) O2 Delivery Room Air Room Air Room Air Room Air 09/24/21 09/24/21 09/24/21 09/24/21 13:05 13:20 13:35 13:50 Temp 37.0 36.3 Pulse 108 97 117 Resp 20 20 20 B/P (MAP) 127/75 (92) 129/81 (97) 111/61 (78) O2 Delivery Room Air Room Air Room Air 09/24/21 09/24/21 09/24/21 09/24/21 14:05 14:20 14:35 14:50 Temp 36.4 Pulse 98 101 94 99 Resp 20 20 20 20 B/P (MAP) 110/57 (74) 113/62 (79) 111/57 (75) 108/64 (79) O2 Delivery Room Air Room Air Room Air Room Air 09/24/21 09/24/21 09/24/21 09/24/21 15:05 15:20 15:35 15:50 Pulse 111 102 90 99 Resp 20 20 20 20 B/P (MAP) 115/58 (77) 114/60 (78) 118/69 (85) 135/79 (97) O2 Delivery Room Air Room Air Room Air Room Air 09/24/21 09/24/21 09/24/21 09/24/21 16:10 16:20 16:35 16:50 Temp 36.9 Pulse 115 107 103 Resp 18 18 18 B/P (MAP) 142/75 (97) 134/70 (91) 131/62 (85) O2 Delivery Room Air Room Air Room Air 09/24/21 09/24/21 09/24/21 09/24/21 17:05 17:35 17:50 18:56 Temp 37.8 37.3 Pulse 104 130 145 Resp 18 B/P (MAP) 118/59 (78) 131/65 (87) 127/69 (88) 134/70 (91) Pulse Ox 100 100 98 O2 Delivery Room Air Room Air Room Air Room Air 09/24/21 09/24/21 09/24/21 09/24/21 18:56 19:18 19:18 19:18 Temp 37.3 37.3 Pulse 95 Resp 19 19 B/P (MAP) 120/56 (77) 120/56 (77) Pulse Ox 98 98 O2 Delivery Room Air Room Air Room Air Room Air 09/24/21 09/24/21 09/24/21 09/24/21 19:32 19:32 19:32 19:48 Temp 37.0 37.0 37.0 Pulse 90 93 Resp 17 B/P (MAP) 117/72 (87) 117/72 (87) 119/78 (92) Pulse Ox 98 98 96 O2 Delivery Room Air Room Air Room Air Room Air 09/24/21 09/24/21 09/24/21 09/24/21 19:48 19:48 19:55 19:55 Temp 37.0 37.2 Pulse 80 Resp 18 B/P (MAP) 119/78 (92) 135/83 (100) Pulse Ox 96 98 O2 Delivery Room Air Room Air Room Air Room Air 09/24/21 09/24/21 09/25/21 09/25/21 19:55 20:40 00:18 03:10 Temp 37.2 37.4 36.0 36.2 Pulse 103 91 88 Resp 18 18 18 18 B/P (MAP) 135/83 (100) 120/64 (82) 117/58 (77) 110/69 (83) Pulse Ox 98 96 96 97 O2 Delivery Room Air Room Air 09/25/21 09/25/21 07:44 08:47 Temp 36.4 Pulse 93 Resp 18 B/P (MAP) 123/70 (87) Pulse Ox 97 O2 Delivery Room Air Room Air Physical Exam: General - Alert and oriented, no apparent distress Abdomen - Obese, Soft, appropriately tender to palpation, non-distended, fundus firm at umbilicus Incision - Pfannenstiel incision clean, dry and intact with skin glue; no erythema or induration, no drainage Extremities - trace pitting edema, negative Guillermina's bilaterally Labs: Laboratory Tests Test 09/24/21 12:06 09/24/21 16:10 09/25/21 05:34 Range/Units Glucometer 87 81 70-110 MG/DL White Blood Count 9.5 4.3-11.0 10^3/uL Red Blood Count 3.69 L 3.80-5.11 10^6/uL Hemoglobin 10.6 L 11.5-16.0 g/dL Hematocrit 31 L 35-52 % Mean Corpuscular Volume 85 80-99 fL Mean Corpuscular Hemoglobin 29 25-34 pg Mean Corpuscular Hemoglobin Concent 34 32-36 g/dL Red Cell Distribution Width 13.6 10.0-14.5 % Platelet Count 172 130-400 10^3/uL Mean Platelet Volume 11.6 9.0-12.2 fL Immature Granulocyte % (Auto) 1 % Neutrophils (%) (Auto) 81 H 42-75 % Lymphocytes (%) (Auto) 12 12-44 % Monocytes (%) (Auto) 6 0-12 % Eosinophils (%) (Auto) 0 0-10 % Basophils (%) (Auto) 0 0-10 % Neutrophils # (Auto) 7.6 1.8-7.8 10^3/uL Lymphocytes # (Auto) 1.1 1.0-4.0 10^3/uL Monocytes # (Auto) 0.6 0.0-1.0 10^3/uL Eosinophils # (Auto) 0.0 0.0-0.3 10^3/uL Basophils # (Auto) 0.0 0.0-0.1 10^3/uL Immature Granulocyte # (Auto) 0.1 0.0-0.1 10^3/uL Assessment: Post-operative day # 1, status post primary low transverse section due to non-reassuring status. Recovering well, hemodynamically stable Plan: Routine post-operative care. Viable male infant. Circumcision desired. Heme: Preop hgb 13.0 --> 10.6. FeSO4 and colace ordered. Vitals stable. No s/s of anemia. Feeding: Breast and bottlefeeding. VTE prophylaxis: SCDs. Encourage ambulation. Contraception: Abstinence with plans for IUD placement at 6 week appointment. Plan for discharge on POD#2. Vitals - Labs Vital Signs - I&O Vital Signs Date Time Temp Pulse Resp B/P (MAP) Pulse Ox O2 Delivery O2 Flow Rate FiO2 09/25/21 08:47 36.4 93 18 123/70 (87) 97 Room Air 09/25/21 07:44 Room Air 09/25/21 03:10 36.2 88 18 110/69 (83) 97 09/25/21 00:18 36.0 91 18 117/58 (77) 96 09/24/21 20:40 37.4 103 18 120/64 (82) 96 Room Air 09/24/21 19:55 37.2 18 135/83 (100) 98 Room Air 09/24/21 19:55 37.2 80 18 135/83 (100) 98 Room Air 09/24/21 19:55 Room Air 09/24/21 19:48 37.0 17 119/78 (92) 96 Room Air 09/24/21 19:48 Room Air 09/24/21 19:48 37.0 93 17 119/78 (92) 96 Room Air 09/24/21 19:32 37.0 90 19 117/72 (87) 98 Room Air 09/24/21 19:32 37.0 19 117/72 (87) 98 Room Air 09/24/21 19:32 Room Air 09/24/21 19:18 37.3 95 19 120/56 (77) 98 Room Air 09/24/21 19:18 Room Air 09/24/21 19:18 37.3 19 120/56 (77) 98 Room Air 09/24/21 18:56 Room Air 09/24/21 18:56 37.3 22 134/70 (91) 98 Room Air 09/24/21 17:50 37.8 145 18 127/69 (88) 100 Room Air 09/24/21 17:35 130 18 131/65 (87) 100 Room Air 09/24/21 17:05 104 18 118/59 (78) Room Air 09/24/21 16:50 103 18 131/62 (85) Room Air 09/24/21 16:35 107 18 134/70 (91) Room Air 09/24/21 16:20 115 18 142/75 (97) Room Air 09/24/21 16:10 36.9 09/24/21 15:50 99 20 135/79 (97) Room Air 09/24/21 15:35 90 20 118/69 (85) Room Air 09/24/21 15:20 102 20 114/60 (78) Room Air 09/24/21 15:05 111 20 115/58 (77) Room Air 09/24/21 14:50 36.4 99 20 108/64 (79) Room Air 09/24/21 14:35 94 20 111/57 (75) Room Air 09/24/21 14:20 101 20 113/62 (79) Room Air 09/24/21 14:05 98 20 110/57 (74) Room Air 09/24/21 13:50 36.3 09/24/21 13:35 117 20 111/61 (78) Room Air 09/24/21 13:20 97 20 129/81 (97) Room Air 09/24/21 13:05 37.0 108 20 127/75 (92) Room Air 09/24/21 12:50 99 20 112/53 (72) Room Air 09/24/21 12:35 100 20 120/57 (78) Room Air 09/24/21 12:20 86 20 101/52 (68) Room Air 09/24/21 12:05 111 20 129/75 (93) Room Air 09/24/21 11:50 106 20 125/71 (89) Room Air 09/24/21 11:35 92 20 127/71 (89) 95 Room Air 09/24/21 11:20 113 20 128/73 (91) 95 Room Air 09/24/21 11:05 95 20 118/68 (85) 96 Room Air 09/24/21 10:50 112 20 127/65 (85) 97 Room Air 09/24/21 10:35 36.3 123 20 131/69 (89) 99 Room Air 09/24/21 10:20 126 20 130/70 (90) 100 Room Air 09/24/21 10:15 106 20 133/70 (91) 98 Room Air 09/24/21 10:10 104 20 130/74 (92) 99 Room Air 09/24/21 10:05 111 20 128/72 (90) 99 Room Air I & O 09/25/21 07:00 Intake Total 3650 ml Output Total 950 ml Balance 2700 ml Labs Laboratory Tests 09/24/21 12:06: Glucometer 87 09/24/21 16:10: Glucometer 81 09/25/21 05:34: White Blood Count 9.5, Red Blood Count 3.69L, Hemoglobin 10.6L, Hematocrit 31L, Mean Corpuscular Volume 85, Mean Corpuscular Hemoglobin 29, Mean Corpuscular Hemoglobin Concent 34, Red Cell Distribution Width 13.6, Platelet Count 172, Mean Platelet Volume 11.6, Immature Granulocyte % (Auto) 1, Neutrophils (%) (Auto) 81H, Lymphocytes (%) (Auto) 12, Monocytes (%) (Auto) 6, Eosinophils (%) (Auto) 0, Basophils (%) (Auto) 0, Neutrophils # (Auto) 7.6, Lymphocytes # (Auto) 1.1, Monocytes # (Auto) 0.6, Eosinophils # (Auto) 0.0, Basophils # (Auto) 0.0, Immature Granulocyte # (Auto) 0.1 NATHANIEL CALLES MD Sep 25, 2021 10:06
[2021-09-25 13:18] VITALS: BP 120/82
--- NOTE | 2021-09-25 16:45 | Anesthesia-Regional Post-Op ---
Regional Patient Condition Mental Status: Alert, Oriented x3 Circulation: Same as Pre-Op Headache: Absent Sensation: Full Recovery Motor Block: Absent Post Op Complications Complications None Follow Up Care/Instructions Patient Instructions None needed. Anesthesia/Patient Condition Patient is doing well, no complaints, stable vital signs, no apparent adverse anesthesia problems. No complications reported per nursing. HOMER LARKIN CRNA Sep 25, 2021 16:45
[2021-09-25 16:54] VITALS: BP 133/62
[2021-09-25] MEDS ORDERED: IBUPROFEN 600 MG (MOTRIN) TAB PO ONE (21:54)
[2021-09-25] MEDS: IBUPROFEN 600 MG (MOTRIN) TAB PO SCH (21:57)
[2021-09-25 22:03] VITALS: BP 109/69
[2021-09-26] MEDS: DOCUSATE SODIUM 100 MG (COLACE) CAP PO SCH ×2 (00:48→08:08)
[2021-09-26] MEDS: IBUPROFEN 600 MG (MOTRIN) TAB PO SCH ×2 (04:45→12:02)
[2021-09-26 04:49] VITALS: BP 134/71
[2021-09-26] MEDS: ACETAMINOPHEN 500 MG TAB (TYLENOL) PO SCH (08:09)
--- NOTE | 2021-09-26 11:04 | Postpartum Progress Note ---
Post Op Post-operative Day #2 Subjective: Patient is without complaints. Ambulating, voiding after gerard removed. Tolerating a regular diet without nausea or vomiting. Normal lochia. Pain is well controlled with oral pain medications. Passing flatus. Pumping and bottlefeeding. Anticipates discharge today. Objective: Vital Signs 09/26/21 04:49 Temp 37.1 Pulse 96 Resp 17 B/P (MAP) 134/71 (92) Pulse Ox 99 O2 Delivery Room Air Physical Exam: General - Alert and oriented, no apparent distress Abdomen - Soft, appropriately tender to palpation, non-distended, fundus firm at umbilicus Incision - Pfannenstiel incision is clean, dry and intact with skin glue; no erythema or induration, no drainage Extremities - trace pitting edema of lower extremities bilaterally, negative Guillermina's bilaterally Assessment: Post-operative day # 2, status post primary low transverse section due to non-reassuring status. was complicated by gestational d iabetes. Recovering well, hemodynamically stable Plan: Routine post-operative care. Viable male infant. Circ completed this morning. Pumping and bottlefeeding. Gestational Diabetes: Plans for 2hr GTT at 6 week appointment to rule out T2DM. Heme: Preop hgb 13.0 to postop hgb of 10.6. Vitals stable. No s/s of anemia. Ferrous sulfate supplementation. VTE prophylaxis: SCDs. Encourage ambulation. Contraception: Abstinence to IUD insertion in office. Plan for discharge today with plans for incision check in 1 week with OB office. [] Vitals - Labs Vital Signs - I&O Vital Signs Date Time Temp Pulse Resp B/P (MAP) Pulse Ox O2 Delivery O2 Flow Rate FiO2 09/26/21 04:49 37.1 96 17 134/71 (92) 99 Room Air 09/25/21 22:03 36.3 86 17 109/69 (82) 98 Room Air 09/25/21 16:54 36.1 94 18 133/62 (85) 97 Room Air 09/25/21 13:18 36.2 89 18 120/82 (95) 98 Room Air I & O 09/26/21 07:00 Output Total 1000 ml Balance -1000 ml NATHANIEL CALLES MD Sep 26, 2021 11:04
--- NOTE | 2021-09-26 11:07 | Discharge Inst-Simple/Standard ---
Discharge Inst-Standard Reconcile Patient Problems Problems Reviewed?: Yes Discharge Medications New, Converted or Re-Newed RX: Transmitted to Pharmacy Patient Instructions/Follow Up Plan of Care/Instructions/FU: Follow-up in the OBGYN office in 1 week for a wound incision check. Follow up with [facility] in 6 weeks for a examination. Please keep your wound incision dry. Activity as Tolerated: Yes Discharge Diet: No Restrictions Return to The Hospital For: Persistent headache, blurry vision, shortness of breath, chest pain, significant abdominal pain, significant lower leg swelling, significant vaginal bleeding (completely saturating over 2 pads within 1 hour) NATHANIEL CALLES MD Sep 26, 2021 11:07
--- NOTE | 2021-09-26 11:13 | Short Stay Summary ---
Discharge Summary Hospital Course Was the Problem List Reviewed?: Yes Problems/Dx: (1) Gestational diabetes Status: Resolved Qualifiers: Qualified Codes: O24.415 - Gestational diabetes mellitus in , controlled by oral hypoglycemic drugs (2) care following delivery Status: Chronic Final Diagnosis: care following section Hospital Course Date of Admission: Sep 23, 2021 at 18:40 Admission Diagnosis : Family Physician/Provider: No,Local Physician Date of Discharge: 09/26/21 Discharge Diagnosis: care following section Hospital Course: Lynette Griggs is a 25 yo who presented at 38w3d for an IOL for gestational diabetes. She was a patient of [facility]. She progressed to 8cm, but sustained deep variables with contractions despite amnioinfusion and maternal resuscitation measures. The decision was made to proceed with primary low transverse section due to non-reassuring status for which she tolerated well. Her course was uncomplicated and by POD#2, she was meeting postoperative milestones. She was discharged home on POD#2 in stable condition with plans for follow-up in 1 week for an incision check with the OB clinic. She was then to follow-up in 6 weeks for a examination. Labs and Pending Lab Test: Home Meds Active Reported Metformin HCl 500 Mg Tablet 1,500 Mg PO HS Metformin HCl 500 Mg Tablet 500 Mg PO DAILY Assessment/Pt Instructions Discharge home today with plans for follow-up in 1 week for an incision check with the OBGYN office. Patient to follow-up in 6 weeks with [facility] for examination. Discharge Instructions Discharge Diet: No Restrictions Activity as Tolerated: Yes Discharge Physical Examination Allergies: Coded Allergies: hydrocodone (Verified Allergy, Unknown, Rash, 09/23/21) Discharge Summary Date of Admission Sep 23, 2021 at 18:40 Date of Discharge Discharge Diagnosis (1) Gestational diabetes Status: Resolved Assessment & Plan: 38w3d, induction at this time due to suboptimal fasting glucose over the last week (around 100 daily) along with impending macros omia with EFW 4130 on 09/20. Has had weekly reassuring BPPs. -Cytotec vaginal given x2 overnight with improvement from 2 to 3+ cm and cervical softening and moved to anterior position. AROM done at time of exam this morning with clear fluid, will start pitocin. -Glucose check q4, have been within normal limits Qualifiers: Qualified Codes: O24.415 - Gestational diabetes mellitus in , controlled by oral hypoglycemic drugs NATHANIEL CALLES MD Sep 26, 2021 11:13
[2021-09-26] MEDS ORDERED: SIME80TA16 PO (11:17)
[2021-09-26] MEDS ORDERED: OXC5T PO (11:17)
[2021-09-26] MEDS ORDERED: ONDA4TAB11 PO (11:17)
[2021-09-26] MEDS ORDERED: IBUP-844 PO (11:17)
[2021-09-26] MEDS ORDERED: DOCU100C37 PO (11:17)
[2021-09-26] MEDS ORDERED: ACET-93 PO (11:17)
[2021-09-26 12:01] VITALS: BP 138/84
== END 2021-09-26 12:58 | disposition home or self-care (01) | DRG 788 ==
LOC: LDRP 18:40 → WS 09-24 19:55
PROVIDERS: ADMIT Family Medicine; ATTEND Family Medicine
PROC: 3E0DXGC Introduction of Other Therapeutic Substance into Mouth and Pharynx, External Approach (ICD-10-PCS; 2021-09-24)
PROC: 3E0E37Z Introduction of Electrolytic and Water Balance Substance into Products of Conception, Percutaneous Approach (ICD-10-PCS; 2021-09-24)
PROC: 10D00Z1 Extraction of Products of Conception, Low, Open Approach (ICD-10-PCS; principal; 2021-09-24 17:50)
DX: O24.425 Gestational diabetes mellitus in childbirth, controlled by oral hypoglycemic drugs (principal); Z3A.38 38 weeks gestation of pregnancy; Z37.0 Single live birth; O76 Abnormality in fetal heart rate and rhythm complicating labor and delivery; Z79.84 Long term (current) use of oral hypoglycemic drugs; Z88.5 Allergy status to narcotic agent
CPT/HCPCS: 36415; 82947; 85025; 86850; 86900; 86901; 94664